=== PATIENT | male | born 1970 | race Hispanic/Latino ===

== ENCOUNTER 2019-08-12 08:34 | Emergency (ER) | payer BC ==
[~2019-08-12] VITALS: Ht 167.6 cm; Wt 85.9 kg
[~2019-08-12 08:34] MED LIST: BENADRYL 50MG C50 MG OR; CEPHALEXIN500 M1 OR; CEPHALEXIN500 MG OR; LISINOPRIL20 M1 OR; MEDDOSEPAK OR; NO HOME MEDS; ONDANSETRON4 MG OR; ZANTAC150 M1 OR
[2019-08-12 09:50] LABS: HEMATOCRIT 42.3 % (39.0-50.0); HEMOGLOBIN 13.9 g/dl (14.0-18.0); IMMATURE GRANULOCYTES 0.5 % (0.0-5.0); MEAN CELL VOLUME 80.1 fL CALC (80.0-100.0); MEAN CORPUSCULAR HGB 26.3 pG CALC (26.0-32.0); MEAN CORPUSCULAR HGB CONC 32.9 g/dL CAL (32.0-36.0); NEUT# 7.77 thou/uL (1.82-7.42); RED BLOOD COUNT 5.28 mill/uL (4.70-6.10); RED CELL DISTRI WIDTH 12.1 % (11.5-15.5)
[2019-08-12 10:56] LABS: ALKALINE PHOSPHATASE 81 u/l (38-126); ANION GAP 12 (6-22 (CALC)); BILIRUBIN, TOTAL 0.9 mg/dL (0.0-1.4); BUN 12 mg/dL (9-20); BUN/CREATININE RATIO 15 (12-20 (CALC)); CARBON DIOXIDE 30 mmol/l (22-30); CHLORIDE 97 mmol/l (95-108); CREATININE 0.8 mg/dL (0.7-1.3); GFR > 60 ML/MIN (>=60 (CALC)); GFR FOR AFR.AMER. > 60 ML/MIN (>=60 (CALC)); POTASSIUM 3.9 mmol/l (3.5-5.1); SGOT/AST 37 u/l (17-59); SODIUM 134 mmol/l (137-146)
[2019-08-12 11:06] LABS: ALBUMIN 4.1 g/dL (3.2-5.0); C-REACTIVE PROTEIN 22.4 mg/dL (0-0.9); TOTAL PROTEIN 7.5 g/dL (6.3-8.2)
[2019-08-12] MEDS ORDERED: GLIMEPIRIDE2 MG PO (11:59)
[2019-08-12] MEDS ORDERED: HYDROCHLOROT12.5 MG PO (11:59)
[2019-08-12] MEDS ORDERED: LISINOPRIL40 MG PO (11:59)
[2019-08-12] MEDS ORDERED: AZITHROMYCIN500 MG PO (12:00)
[2019-08-12] MEDS ORDERED: BUDESONID2 IN (12:00)
[2019-08-12] MEDS ORDERED: ALBUTEROL SUL0.083 % IN (12:00)
[2019-08-12 12:17] VITALS: BP 132/89
== END 2019-08-12 12:17 | disposition home or self-care (01) | DRG 179 ==
LOC: ED 08:34
PROVIDERS: Family Medicine
DX: U07.1 COVID-19 (principal); E11.9 Type 2 diabetes mellitus without complications; I10 Essential (primary) hypertension